=== PATIENT | male | born 1935 | race Caucasian/White ===

== ENCOUNTER 2017-01-29 08:17 | Emergency (ER) | payer OTHER ==
[2017-01-29 08:23] VITALS: BP 136/63; PULSE 58; TEMP 99.3; BMI 24.9
--- NOTE | 2017-01-29 08:34 | PDOC ---
History of Present Illness - General Chief Complaint: CVA/TIA Stated Complaint: NUMBNESS IN RIGHT HAND Time Seen by Provider: 01/29/17 08:23 History Source: Patient, Family, Old Records Exam Limitations: No Limitations - History of Present Illness Initial Comments: 01/29/17 08:37 81-year-old male with history of hypertension, high cholesterol, atrial fibrillation, coronary artery disease status post stent presents to the emergency department with 2 week history of intermittent right upper extremity and right lower extremity numbness and weakness. The patient states that he has had 4 episodes over the past 2 weeks the last episode occurring 4 days ago. Each episode lasts approximately 3-4 minutes and spontaneously resolves and the patient regains full sensation and motor strength. The patient was referred to a neurologist, Dr. Zambrano yesterday who referred him to the emergency department yesterday; however, the patient did not feel comfortable going to the ER without his family with him and so presented to the emergency department today. The neurologist requested that the patient get CT head and CT angio of the carotids. The patient is currently without complaints. Past History - Past Medical History Allergies/Adverse Reactions: Allergies Allergy/AdvReac Type Severity Reaction Status Date / Time No Known Allergies Allergy Verified 01/29/17 08:19 Home Medications: Ambulatory Orders Metoprolol Succinate 50 mg PO DAILY 03/24/12 Pantoprazole Sodium [Protonix -] 20 mg PO DAILY #0 tablet.ec 03/24/12 Simvastatin [Zocor] 20 mg PO DAILY 03/24/12 Amlodipine Besylate [Norvasc -] 5 mg PO DAILY 04/09/13 Tamsulosin HCl 0.4 mg PO DAILY 04/09/13 Rivaroxaban [Xarelto -] 20 mg PO DAILY 01/29/17 Anemia: No Asthma: No Cancer: No Cardiac Disorders: Yes (AFIB, 2STENTS, LINK) CVA: No COPD: No CHF: No Dementia: No Diabetes: No Dialysis: No GI Disorders: Yes Disorders: Yes (recent colonoscopy was negative per patient) HTN: Yes Hypercholesterolemia: Yes HIV: No Kidney Stones: No Liver Disease: No Seizures: No Thyroid Disease: No - Surgical History Abdominal Surgery: No Appendectomy: Yes Cardiac Surgery: Yes (STENT) Cholecystectomy: No Lung Surgery: No Neurologic Surgery: No Orthopedic Surgery: No - Immunization History Td Vaccination: No TDAP Vaccination: No Immunization Up to Date: Yes - Psycho/Social/Smoking Cessation Hx Anxiety: No Suicidal Ideation: No Smoking Status: No Smoking History: Never smoked Years of Tobacco Use: 0 Number of Cigarettes Smoked Daily: 0 Cigars Per Day: 0 Hx Alcohol Use: No Drug/Substance Use Hx: No Substance Use Type: None Hx Substance Use Treatment: No Review of Systems - Review of Systems Able to Perform ROS?: Yes Is the patient limited [place] proficient: No Constitutional: No: Symptoms Reported HEENTM: No: Symptoms Reported Respiratory: No: Symptoms reported Cardiac (ROS): No: Symptoms Reported ABD/GI: No: Symptoms Reported : No: Symptoms Reported Musculoskeletal: No: Symptoms Reported Integumentary: No: Symptoms Reported Neurological: Yes: See HPI *Physical Exam - Vital Signs Last Vital Signs Temp Pulse Resp BP Pulse Ox 99.3 F 58 L 18 136/63 100 01/29/17 08:19 01/29/17 08:19 01/29/17 08:19 01/29/17 08:19 01/29/17 08:19 - Physical Exam Comments: 01/29/17 08:40 GENERAL: Well developed, well nourished. Awake and alert. No acute distress. HEENT: Normocephalic, atraumatic. PERRLA, EOMI. No conjunctival pallor. Sclera are non- icteric. Moist mucous membranes. Oropharynx is clear. NECK: Supple. Full ROM. No JVD. No lymphadenopathy. There is a bruit auscultated in the left carotid region. CARDIOVASCULAR: Regular rate and rhythm. No murmurs, rubs, or gallops. Distal pulses are 2+ and symmetric. PULMONARY: No evidence of respiratory distress. Lungs clear to auscultation bilaterally. No wheezing, rales or rhonchi. ABDOMINAL: Soft. Non-tender. Non-distended. No rebound or guarding. No organomegaly. Normoactive bowel sounds. MUSCULOSKELETAL Normal range of motion at all joints. No bony deformities or tenderness. No CVA tenderness. EXTREMITIES: No cyanosis. No clubbing. No edema. No calf tenderness. SKIN: Warm and dry. Normal capillary refill. No rashes. No jaundice. NEUROLOGICAL: Alert, awake, appropriate. Cranial nerves 2-12 intact. Grossly non-focal exam. Sensory and motor exams as well as cerebellar exams are non-focal. PSYCHIATRIC: Cooperative. Good eye contact. Appropriate mood and affect. ED Treatment Course - LABORATORY CBC & Chemistry Diagram: 01/29/17 08:36 01/29/17 08:36 Medical Decision Making - Medical Decision Making 01/29/17 08:40 81-year-old male with history of hypertension, hyperlipidemia, atrial fibrillation, coronary artery disease who presents the emergency Department with complaints of intermittent right upper extremity and right lower extremity numbness and weakness 2 weeksshe is currently asymptomatic. There is a left carotid bruit heard on physical exam. Differential diagnosis includes but is not limited to: TIA, carotid stenosis, carotid dissection. Plan: 1. CT head 2. CT angiogram of the neck 3. Will discuss the case with the patient's neurologist 4. Labs 5. Observe and reevaluate 01/29/17 13:00 Addeneum: CT head was negative for stroke/ischemia. The CT neck has not been officially read as of yet. I have discussed this with Dr. Zambrano who agrees with the plan to discharge thepatient. We have provided thepatient with a CD of the scans. I will call Dr Zambrano with the results of the CT neck later. Return to the ED if Sx persist, owrsen or new Sx arise. *DC/Admit/Observation/Transfer Diagnosis at time of Disposition: Weakness - Discharge Dispostion Disposition: HOME Condition at time of disposition: Stable Admit: No - Referrals Referrals: Kuldeep Roe MD [Primary Care Provider] - - Patient Instructions Additional Instructions: Follow-up with Dr. Zambrano (Neurology). Return to the ED of your symptoms persist, worsen or new symptoms arise.
[2017-01-29 08:48] LABS: BASOPHIL 0.8 % (0-2.0); MCHC 32.6 g/dl (32.0-35.9); MEAN CELL VOLUME 82.6 fl (80-96); MEAN PLT VOLUME 8.7 fl (7.5-11.1); NEUTROPHILS 48.7 % (42.8-82.8); PLATELET COUNT 233 K/MM3 (134-434); RDW 14.3 % (11.9-15.9); WHITE BLOOD COUNT 5.9 K/mm3 (4.0-10.0)
[2017-01-29 09:14] LABS: CALCIUM 8.6 mg/dl (8.4-10.2); PHOSPHOROUS 2.7 mg/dl (2.5-4.6)
--- NOTE | 2017-01-29 13:47 | EKG ---
Test Reason : Blood Pressure : / mmHG Vent. Rate : 059 BPM Atrial Rate : 059 BPM P-R Int : 160 ms QRS Dur : 126 ms QT Int : 428 ms P-R-T Axes : 057 -16 013 degrees QTc Int : 423 ms SINUS BRADYCARDIA RIGHT BUNDLE BRANCH BLOCK CANNOT RULE OUT INFERIOR INFARCT , AGE UNDETERMINED ABNORMAL ECG NO PREVIOUS ECGS AVAILABLE Confirmed by CECE PADGETT MD ([id number]) on 01/29/2017 1:46:30 PM Referred By: YVON JACQUES Confirmed By:CECE PADGETT MD
== END 2017-01-29 13:05 | disposition home or self-care (01) ==
LOC: FER 08:17
DX: M62.81 Muscle weakness (generalized) (principal); I10 Essential (primary) hypertension; E78.00 Pure hypercholesterolemia, unspecified; Z95.5 Presence of coronary angioplasty implant and graft; I48.91 Unspecified atrial fibrillation
CPT/HCPCS: 36415; 70450-TC; 70498-TC; 80048; 83735; 84100; 85025; 93005; 99283-25

== ENCOUNTER 2017-05-16 10:04 | Observation (INO) | payer OTHER ==
--- NOTE | 2017-05-16 10:23 | RAPID ---
Physical Examination Vital Signs: Vital Signs Temperature 98.3 F 05/16/17 10:13 Pulse Rate 58 L 05/16/17 10:13 Respiratory Rate 15 05/16/17 10:13 Blood Pressure 106/66 05/16/17 10:13 O2 Sat by Pulse Oximetry (%) 98 05/16/17 10:13 Findings/Remarks: Rapid response called to outpatient phlebotomy. Briefly, this is an 81 year old male with a history of HTN, CAD, and LOOP recorder, on Xarelto, who accompanied his to have her labs drawn this morning. He felt lightheaded and fell backwards, striking his head on the floor. He did not lose consciousness, but also did not realize he was on the floor until BEHAVIORAL ASSISTANT arrived. He denies pain. He is alert and oriented x 3. BP 106 systolic. No obvious head trauma or midline cervical vertebral tenderness. Transported to ED via stretcher. Dr. Turpin to assume care.
--- NOTE | 2017-05-16 10:30 | PDOC ---
History of Present Illness - General Chief Complaint: Syncope/Near Syncope Stated Complaint: FAINTED AND STRUCK BACK OF HEAD Time Seen by Provider: 05/16/17 10:28 History Source: Patient Exam Limitations: No Limitations - History of Present Illness Initial Comments: 05/16/17 10:29 This patient is an 81 yo M with a history of HTN, HLD, Afib on Xeralto, CAD s/p PCI and stenting Pt presents to the ER as a rapid response PT was enroute to phlebotomy with his THey had not gotten in to the room, he did not see any blood He states he remembers getting dizzy and falling He had a loss of consciousness He states that he often gets dizzy when he goes up steps Today, however, he did not go up any steps He denies chest pain or pressure, he denies nausea He denies preceding headache He denies focal weakness or numbness 05/16/17 10:30 PMH: HTN, HLD, Afib, CAD PSH: Meds: please see MAR ALL: NKDA Social: No alcohol, drugs, cigarette use GENERAL/CONSTITUTIONAL: No: fever, chills, weakness, loss of appetite. HEAD, EYES, EARS, NOSE AND THROAT: No: change in vision, ear pain, discharge, sore throat, throat swelling. CARDIOVASCULAR: No: chest pain, lightheadedness, palpitations, syncope RESPIRATORY: No: cough, shortness of breath, wheezing, hemoptysis, stridor. GASTROINTESTINAL: No: nausea, vomiting, abdominal cramping, diarrhea, rectal bleeding, constipation. GENITOURINARY: No: dysuria, hematuria, frequency, urgency, flank pain. MUSCULOSKELETAL: No: back pain, neck pain, joint pain, muscle swelling or pain SKIN: No: lesions, pallor, rash or easy bruising. NEUROLOGIC: Yes: Syncope No: headache, vertigo, paresthesias, weakness ENDOCRINE: No: unexplained weight gain or loss HEMATOLOGIC/LYMPHATIC: No: anemia, easy bleeding, swelling nodes Adult PE GENERAL: The patient is in no acute distress. HEAD: Normal with no signs of trauma, no hematoma. EYES: PERRLA, EOMI, sclera anicteric, conjunctiva clear. ENT: Ears normal, nares patent, oropharynx clear without exudates. Moist mucous membranes. NECK: Normal range of motion, supple No midline tenderness to palpation LUNGS: Breath sounds equal, clear to auscultation bilaterally. HEART:Regular rate and rhythm, normal S1 and S2 without murmur, rub or gallop. ABDOMEN: Soft, nontender, normoactive bowel sounds. No guarding, no rebound. EXTREMITIES: Normal range of motion, no edema. No clubbing or cyanosis. No erythema, or tenderness. NEUROLOGICAL: Cranial nerves II through XII grossly intact. Normal speech. No focal neurological deficits. MUSCULOSKELETAL: Back non-tender to palpation, no CVA tenderness SKIN: Warm, Dry, normal turgor, no rashes or lesions noted. 05/16/17 10:36 Past History - Past Medical History Allergies/Adverse Reactions: Allergies Allergy/AdvReac Type Severity Reaction Status Date / Time No Known Allergies Allergy Verified 05/16/17 10:29 Home Medications: Ambulatory Orders Metoprolol Succinate 50 mg PO DAILY 03/24/12 Pantoprazole Sodium [Protonix -] 20 mg PO DAILY #0 tablet.ec 03/24/12 Simvastatin [Zocor] 20 mg PO DAILY 03/24/12 Amlodipine Besylate [Norvasc -] 5 mg PO DAILY 04/09/13 Tamsulosin HCl 0.4 mg PO HS 04/09/13 Rivaroxaban [Xarelto -] 20 mg PO HS 01/29/17 Docusate Sodium [Colace -] 100 mg PO HS 05/16/17 Anemia: No Asthma: No Cancer: No Cardiac Disorders: Yes (AFIB, 2STENTS, LINK) CVA: No COPD: No CHF: No Dementia: No Diabetes: No Dialysis: No GI Disorders: Yes Disorders: Yes (recent colonoscopy was negative per patient) HTN: Yes Hypercholesterolemia: Yes HIV: No Kidney Stones: No Liver Disease: No Seizures: No Thyroid Disease: No - Surgical History Abdominal Surgery: No Appendectomy: Yes Cardiac Surgery: Yes (STENT) Cholecystectomy: No Lung Surgery: No Neurologic Surgery: No Orthopedic Surgery: No - Immunization History Td Vaccination: No TDAP Vaccination: No Immunization Up to Date: Yes - Psycho/Social/Smoking Cessation Hx Anxiety: No Suicidal Ideation: No Smoking Status: No Smoking History: Never smoked Years of Tobacco Use: 0 Number of Cigarettes Smoked Daily: 0 Cigars Per Day: 0 Hx Alcohol Use: No Drug/Substance Use Hx: No Substance Use Type: None Hx Substance Use Treatment: No *Physical Exam - Vital Signs Last Vital Signs Temp Pulse Resp BP Pulse Ox 98.3 F 58 L 15 106/66 98 05/16/17 10:13 05/16/17 10:13 05/16/17 10:13 05/16/17 10:13 05/16/17 10:13 Heart Score/ECG Review #1 ECG reviewed & interpreted by me at: 10:40 05/16/17 10:40 SR, rate of 56 bpm [place] nml RBBB Q wave III, aVF (similar to prior) ED Treatment Course - LABORATORY CBC & Chemistry Diagram: 05/16/17 11:10 05/16/17 11:10 Medical Decision Making - Medical Decision Making 05/16/17 10:39 Syncopal event: Vasovagal, ACS, Seizure Will do labs Will do EKG Will do CXR Will re assess 05/16/17 12:09 Laboratory Tests 05/16/17 05/16/17 05/16/17 11:10 11:10 11:10 WBC 6.4 Hgb 13.0 Hct 39.1 Plt Count 225 Neutrophils % 57.9 Lymphocytes % 30.0 Sodium 130 L Potassium 4.4 Chloride 99 Carbon Dioxide 24 BUN 12 Creatinine 1.0 Random Glucose 118 H Creatine Kinase 284 H 05/16/17 12:36 Laboratory Tests 05/16/17 11:10 Creatine Kinase 284 H CK-MB (CK-2) Rel Index 1.0 Troponin I < 0.[address]: no ICH, no fracture or dislocation Case reviewed with Dr Pearson He agrees, pt should stay in the hospital as he has an internal loop recorder which should be interrogated Case reviewed with Dr Briseno He will place on observation Will consult cardiology Will place on tele Clinical Impression: syncope 05/17/17 16:51 *DC/Admit/Observation/Transfer Diagnosis at time of Disposition: Syncope and collapse - Discharge Dispostion Disposition: HOME Condition at time of disposition: Stable Admit: Yes - Referrals
[2017-05-16 11:54] LABS: CPK(DFH) 284 IU/L (38-174)
[2017-05-16 12:02] LABS: ALBUMIN 3.7 g/dl (3.5-5.0); ALK PHOS 91 U/L (32-92); ANION GAP 7 (8-16); BASOPHIL 1.1 % (0-2.0); BILIRUBIN,TOTAL 0.9 mg/dl (0.2-1.0); CALCIUM 8.9 mg/dl (8.4-10.2); CO2 24 mmol/L (22-28); EOSINOPHIL 1.5 % (0-4.5); GLUCOSE,RANDOM 118 mg/dl (74-106); MCH 26.8 pg (25.7-33.7); MCHC 33.2 g/dl (32.0-35.9); RDW 14.8 % (11.9-15.9); SGOT/AST 29 U/L (10-42); SGPT/ALT 25 U/L (10-40); TOT PROT 6.7 g/dl (6.4-8.3); WHITE BLOOD COUNT 6.4 K/mm3 (4.0-10.8)
[2017-05-16 12:03] LABS: MEAN CELL VOLUME 80.8 fl (80-96); MEAN PLT VOLUME 8.9 fl (7.5-11.1); NEUTROPHILS 57.9 % (42.8-82.8); PLATELET COUNT 225 K/MM3 (134-434)
[2017-05-16 12:33] LABS: TROPONIN I (DFP) < 0.03 ng/ml (0.03-0.50)
[2017-05-16 14:16] VITALS: BMI 24.0
[2017-05-16] MEDS ORDERED: ACETAMINOPHEN 325 MG TABLET (FP) PO PRN (16:28)
--- NOTE | 2017-05-16 16:37 | HP ---
Admitting History and Physical - Primary Care Physician PCP: Kuldeep Roe - Admission Chief Complaint: fall History of Present Illness: This patient is an 81 yo M with a history of HTN, HLD, Afib on Xeralto, CAD s/p PCI, hard of hearing and bph and stenting Pt presented to the ER as a rapid response PT was en route to phlebotomy with his They had not gotten in to the room, he did not see any blood He states he remembers getting dizzy and falling He had a loss of consciousness He states that he often gets dizzy when he goes up steps Today, however, he did not go up any steps He denies chest pain or pressure, he denies nausea He denies preceding headache He denies focal weakness or numbness work up -ve -- ct head -ve pt admitted for observation. pt seen/ examined/ chart reviewed. case also discussed with er physician at present comfortable c/c - mild discomfort in neck/ back of head. denies cp/ sob/ abd pain denies u/ b trouble History Source: Patient, Family Member Limitations to Obtaining History: No Limitations - Smoking History Smoking history: Never smoked Aproximately how many cigarettes per day: 0 - Alcohol/Substance Use Hx Alcohol Use: No Home Medications - Allergies Allergies/Adverse Reactions: Allergies Allergy/AdvReac Type Severity Reaction Status Date / Time No Known Allergies Allergy Verified 05/16/17 10:29 - Home Medications Home Medications: Ambulatory Orders Metoprolol Succinate 50 mg PO DAILY 03/24/12 Pantoprazole Sodium [Protonix -] 20 mg PO DAILY #0 tablet.ec 03/24/12 Simvastatin [Zocor] 20 mg PO DAILY 03/24/12 Amlodipine Besylate [Norvasc -] 5 mg PO DAILY 04/09/13 Tamsulosin HCl 0.4 mg PO HS 04/09/13 Rivaroxaban [Xarelto -] 20 mg PO HS 01/29/17 Docusate Sodium [Colace -] 100 mg PO HS 05/16/17 Review of Systems Unable to obtain ROS, reason: see [place] Physical Examination Vital Signs: Vital Signs Temperature 97.5 F L 05/16/17 14:11 Pulse Rate 58 L 05/16/17 14:11 Respiratory Rate 16 05/16/17 14:18 Blood Pressure 125/64 05/16/17 14:11 O2 Sat by Pulse Oximetry (%) 100 05/16/17 14:18 Constitutional: Yes: No Distress, Calm Eyes: Yes: Conjunctiva Clear Neck: Yes: Supple, Other (no jvd) Cardiovascular: Yes: Regular Rate and Rhythm. No: Pulse Irregular Respiratory: Yes: CTA Bilaterally Gastrointestinal: Yes: Soft Edema: No Neurological: Yes: WNL, Cran Nerves II-XII Intact, Other (perrla) Psychiatric: Yes: Alert Imaging - Results Chest X-ray: Report Reviewed Cat Scan: Report Reviewed EKG: Report Reviewed Problem List - Problems (1) Syncope and collapse Code(s): R55 - SYNCOPE AND COLLAPSE (2) Head trauma Code(s): S09.90XA - UNSPECIFIED INJURY OF HEAD, INITIAL ENCOUNTER (3) Chronic a-fib Code(s): I48.2 - CHRONIC ATRIAL FIBRILLATION (4) Hypertension Code(s): I10 - ESSENTIAL (PRIMARY) HYPERTENSION (5) BPH (benign prostatic hyperplasia) Code(s): N40.0 - BENIGN PROSTATIC HYPERPLASIA WITHOUT LOWER URINRY TRACT SYMP Assessment/Plan stable exam benign monitor on tele orthostatic check up recommended hearing check as out pt repeat head ct head in am restart xarelto in am if ct head -ve fall precautions cta neck 02/14 noted if orthostasis +ve- consider d/c bph. will follow discussed in family in detail
--- NOTE | 2017-05-16 17:07 | CON.CARD ---
Consult Consult Specialty:: Cardiology Referred by:: Dr. Bienvenido Briseno Reason for Consultation:: Syncope - History of Present Illness Chief Complaint: Syncope History of Present Illness: This patient is an 81 yo M with history of HTN, HLD, paroxysmal Afib on Xarelto with ILR, CAD s/p PCI(stent), hard of hearing and bph admitted for syncopal episode following prodromal sxs of dizziness, reports positional component, denies chest pain, dyspnea, palpitations, orthopnea, PND or LE edema. Sees Dr. Tyrone Levy at [facility] for cardiology. - History Source History Provided By: Patient, Family Member Limitations to Obtaining History: No Limitations - Past Medical History Cardio/Vascular: Yes: AFIB, HTN - Alcohol/Substance Use Hx Alcohol Use: No - Smoking History Smoking history: Never smoked Aproximately how many cigarettes per day: 0 Home Medications - Allergies Allergies/Adverse Reactions: Allergies Allergy/AdvReac Type Severity Reaction Status Date / Time No Known Allergies Allergy Verified 05/16/17 10:29 - Home Medications Home Medications: Ambulatory Orders Metoprolol Succinate 50 mg PO DAILY 03/24/12 Pantoprazole Sodium [Protonix -] 20 mg PO DAILY #0 tablet.ec 03/24/12 Simvastatin [Zocor] 20 mg PO DAILY 03/24/12 Amlodipine Besylate [Norvasc -] 5 mg PO DAILY 04/09/13 Tamsulosin HCl 0.4 mg PO HS 04/09/13 Rivaroxaban [Xarelto -] 20 mg PO HS 01/29/17 Docusate Sodium [Colace -] 100 mg PO HS 05/16/17 Review of Systems - Review of Systems Neurological: reports: Syncope Vital Signs: Vital Signs Temperature 97.5 F L 05/16/17 14:11 Pulse Rate 58 L 05/16/17 14:11 Respiratory Rate 16 05/16/17 16:27 Blood Pressure 125/64 05/16/17 14:11 O2 Sat by Pulse Oximetry (%) 100 05/16/17 16:27 Constitutional: Yes: No Distress, Calm Neck: Yes: Supple, Other (No response to carotid sinus massage) Respiratory: Yes: Regular, CTA Bilaterally Gastrointestinal: Yes: Normal Bowel Sounds, Soft Cardiovascular: Yes: Regular Rate and Rhythm JVD: No Carotid Bruit: No Heart Sounds: Yes: S1, S2 Murmur: Yes: Systolic Murmur, Grade 1 Edema: No - Other Data SR @ 59 RBBB similar to previous 01/29/2017 Prior Cardiac Procedures: PTCA with Stent Imaging - Results Chest X-ray: Report Reviewed (NAD) Cat Scan: Report Reviewed (HCT: Negative) Problem List - Problems (1) Head trauma Code(s): S09.90XA - UNSPECIFIED INJURY OF HEAD, INITIAL ENCOUNTER Qualifiers: Encounter type: initial encounter Qualified Code(s): S09.90XA - Unspecified injury of head, initial encounter (2) Hypertension Code(s): I10 - ESSENTIAL (PRIMARY) HYPERTENSION Qualifiers: Hypertension type: essential hypertension Qualified Code(s): I10 - Essential (primary) hypertension (3) Syncope and collapse Code(s): R55 - SYNCOPE AND COLLAPSE (4) Hyperlipidemia Code(s): E78.5 - HYPERLIPIDEMIA, UNSPECIFIED Qualifiers: Hyperlipidemia type: pure hypercholesterolemia Qualified Code(s): E78.00 - Pure hypercholesterolemia, unspecified; E78.0 - Pure hypercholesterolemia (5) Status post coronary artery stent placement Code(s): Z95.5 - PRESENCE OF CORONARY ANGIOPLASTY IMPLANT AND GRAFT (6) Paroxysmal atrial fibrillation Code(s): I48.0 - PAROXYSMAL ATRIAL FIBRILLATION (7) Status post placement of implantable loop recorder Code(s): Z95.818 - PRESENCE OF OTHER CARDIAC IMPLANTS AND GRAFTS Assessment/Plan 1. Suspect neurocardiogenic syncope +/- orthostasis with closed head trauma 2. PAF->SR on NOAC with ILR 3. HTN 4. Hyperlipidemia 5. BPH 6. CAD s/p PCI(stent), angina pectoris P:1. Check orthostatic vs, rim technician, interrogate ILR 2. Repeat HCT in AM and to resume Xarelto 20 qpm after then 3. Continue Toprol XL 50 qd, Lipitor 10 qhs, Norvasc 5 qd, Flomax 0.4 qhs 4. Thank you for consultative opportunity, patient to f/u with Dr. Tyrone Levy upon d/c, plan of care d/w family
[2017-05-16 19:48] LABS: CPK(DFH) 215 IU/L (38-174)
[2017-05-16 19:57] LABS: TROPONIN I (DFP) < 0.03 ng/ml (0.03-0.50)
[2017-05-16 20:20] LABS: CK MB 2.4 ng/ml (0.3-4.0)
[2017-05-16] MEDS ORDERED: ATORVASTATIN CA 10 MG TABLET (FP) PO SCH (22:00)
[2017-05-16] MEDS ORDERED: TAMSULOSIN HCL 0.4 MG CAP.ER.24H (FP) PO SCH (22:00)
[2017-05-16] MEDS ORDERED: DOCUSATE SODIUM 100 MG CAPSULE (FP) PO SCH (22:00)
[2017-05-16] MEDS ORDERED: RIVAROXABAN 20 MG TABLET PO SCH (22:00)
[2017-05-17] MEDS ORDERED: PANTOPRAZOLE 20 MG TABLET (FP) PO SCH (10:00)
[2017-05-17] MEDS ORDERED: METOPROLOL SUCCINATE 50 MG TAB.SR.24H (FP) PO SCH (10:00)
[2017-05-17] MEDS ORDERED: amLODIPine BESYLATE 5 MG TABLET (FP) PO SCH (10:00)
[2017-05-17] MEDS ORDERED: RIVAROXABAN 20 MG TABLET PO SCH (12:00)
--- NOTE | 2017-05-17 12:47 | DS ---
Physical Examination Vital Signs: Vital Signs Temperature 98.3 F 05/17/17 06:00 Pulse Rate 69 05/17/17 06:00 Respiratory Rate 19 05/17/17 06:00 Blood Pressure 118/68 05/17/17 06:00 O2 Sat by Pulse Oximetry (%) 97 05/17/17 06:00 Constitutional: Yes: No Distress, Calm Cardiovascular: Yes: Regular Rate and Rhythm Respiratory: Yes: CTA Bilaterally Gastrointestinal: Yes: Normal Bowel Sounds, Soft. No: Distention, Tenderness Edema: No Discharge Summary Reason For Visit: SYNCOPE Current Active Problems BPH (benign prostatic hyperplasia) (Acute) Chronic a-fib (Acute) Head trauma (Acute) Hyperlipidemia (Acute) Hypertension (Acute) Paroxysmal atrial fibrillation (Acute) Status post coronary artery stent placement (Acute) Status post placement of implantable loop recorder (Acute) Syncope and collapse (Acute) Hospital Course: Pt admitted for syncope Fell and hit his head -\ Admission Chief Complaint: fall History of Present Illness: This patient is an 81 yo M with a history of HTN, HLD, Afib on Xeralto, CAD s/p PCI, hard of hearing and bph and stenting Pt presented to the ER as a rapid response PT was en route to phlebotomy with his They had not gotten in to the room, he did not see any blood He states he remembers getting dizzy and falling He had a loss of consciousness He states that he often gets dizzy when he goes up steps Today, however, he did not go up any steps He denies chest pain or pressure, he denies nausea He denies preceding headache He denies focal weakness or numbness work up -ve -- ct head -ve pt admitted for observation. pt seen/ examined/ chart reviewed. case also discussed with er physician at present comfortable c/c - mild discomfort in neck/ back of head. denies cp/ sob/ abd pain denies u/ b trouble Hospital course Seen by Cardiology-- cardiac enzymes nbegatoive Tele uneventful Also had interrogation of ILR spoke with son- apparently does not eat breakfast in the morning-- he drinks two glasses of water and one cup of tea. Pt has been dizzy mostly in the mornings. CTA done previously negative repeat CT head negative or bleed pt may resume Xarelto stable for dc home and he should follow up with his canteen operator- Dr Levy in 2 weeks. Condition: Stable - Instructions Referrals: Kuldeep Roe MD [Primary Care Provider] - Disposition: HOME - Home Medications Comprehensive Discharge Medication List: Ambulatory Orders Metoprolol Succinate 50 mg PO DAILY 03/24/12 Pantoprazole Sodium [Protonix -] 20 mg PO DAILY #0 tablet.ec 03/24/12 Simvastatin [Zocor] 20 mg PO DAILY 03/24/12 Amlodipine Besylate [Norvasc -] 5 mg PO DAILY 04/09/13 Tamsulosin HCl 0.4 mg PO HS 04/09/13 Rivaroxaban [Xarelto -] 20 mg PO HS 01/29/17 Docusate Sodium [Colace -] 100 mg PO HS 05/16/17
[2017-05-17 13:14] VITALS: BP 129/64; PULSE 65; TEMP 97.4
--- NOTE | 2017-05-19 08:40 | EKG ---
Test Reason : Blood Pressure : / mmHG Vent. Rate : 056 BPM Atrial Rate : 056 BPM P-R Int : 198 ms QRS Dur : 122 ms QT Int : 398 ms P-R-T Axes : 032 -17 021 degrees QTc Int : 384 ms SINUS BRADYCARDIA WITH SINUS ARRHYTHMIA RIGHT BUNDLE BRANCH BLOCK INFERIOR INFARCT (CITED ON OR BEFORE 29-JAN-2017) ABNORMAL ECG WHEN COMPARED WITH ECG OF 29-JAN-2017 08:42, NO SIGNIFICANT CHANGE WAS FOUND Confirmed by CECE PADGETT MD ([id number]) on 05/19/2017 8:40:04 AM Referred By: KIRA Confirmed By:CECE PADGETT MD
[2017-06-01 14:20] LABS: CK MB 2.9 ng/ml (0.3-4.0)
== END 2017-05-17 14:01 | disposition home or self-care (01) ==
LOC: FER 10:04 → FM/S 13:32
PROVIDERS: ADMIT Internal Medicine; ATTEND Internal Medicine
DX: R55 Syncope and collapse (principal); S09.90XA Unspecified injury of head, initial encounter; I10 Essential (primary) hypertension; I25.10 Atherosclerotic heart disease of native coronary artery without angina pectoris; I48.0 Paroxysmal atrial fibrillation; E78.5 Hyperlipidemia, unspecified; N40.0 Benign prostatic hyperplasia without lower urinary tract symptoms; Z79.01 Long term (current) use of anticoagulants; Z95.5 Presence of coronary angioplasty implant and graft; Z95.818 Presence of other cardiac implants and grafts; W18.39XA Other fall on same level, initial encounter; Y93.89 Activity, other specified; Y92.238 Other place in hospital as the place of occurrence of the external cause
CPT/HCPCS: 36415; 70450-TC; 71010-TC; 72125-TC; 80053; 82550; 82553; 84484; 85025; 93005; 99285-25; G0378

== ENCOUNTER 2019-07-09 08:39 | Observation (INO) | payer OTHER, MEDICARE ==
--- NOTE | 2019-07-09 08:47 | PDOC ---
History of Present Illness - General Chief Complaint: Syncope/Near Syncope Stated Complaint: SYNCOPE Time Seen by Provider: 07/09/19 08:42 History Source: Patient, EMS, Family Exam Limitations: No Limitations - History of Present Illness Initial Comments: 07/09/19 10:06 81 yo M with a history of HTN, HLD, Afib on Xarelto, CAD s/p PCI, dizzy spells/ syncope, slow Afib requiring PPM, hard of hearing and BPH presenting with fall after dizzy spells this morning with associated syncope. He was performing his usual morning routine and walked up the stairs to the bathroom; after making bowel movement, he was getting up to get dressed when he felt very dizzy and going black. He fell to the ground, attempted to get up but fell back again onto his buttock. His son heard two thumps up stairs and found patient on the ground, alert and oriented, but was unclear as to what occurred between the toilet to the floor. Patient experienced Prodromal symptoms including nausea and diaphoresis, headache, but no weakness/paresthesias, chest pain or dyspnea. He currently is complaining of lower and upper back pain. He also endorses nonproductive Cough x 1 week, no f/c. Allergies: None Past Medical History: as documented in EMR/HPI Social history: Lives with family. No tobacco, ETOH or drug use. 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 Past History - Past Medical History Allergies/Adverse Reactions: Allergies Allergy/AdvReac Type Severity Reaction Status Date / Time No Known Allergies Allergy Verified 07/09/19 09:26 Home Medications: Ambulatory Orders Metoprolol Succinate 100 mg PO DAILY 03/24/12 Pantoprazole Sodium [Protonix -] 20 mg PO DAILY #0 tablet.ec 03/24/12 Simvastatin [Zocor] 20 mg PO DAILY 03/24/12 Amlodipine Besylate [Norvasc -] 10 mg PO DAILY 04/09/13 Tamsulosin HCl 0.4 mg PO HS 04/09/13 Rivaroxaban [Xarelto -] 20 mg PO HS 01/29/17 Docusate Sodium [Colace -] 100 mg PO HS 05/16/17 Multivit-Min/FA/Lycopen/Lutein [Centrum Silver Men Tablet] 1 each PO DAILY 07/09 [place]-3 Fatty Acids [[place]-3] 1,000 mg PO DAILY 07/09/19 Anemia: No Asthma: No Cancer: No Cardiac Disorders: Yes (AFIB, 2STENTS, LINK) CVA: No COPD: No CHF: No Dementia: No Diabetes: No Dialysis: No GI Disorders: Yes Disorders: Yes (recent colonoscopy was negative per patient) HTN: Yes Hypercholesterolemia: Yes Kidney Stones: No Liver Disease: No Seizures: No Thyroid Disease: No - Surgical History Abdominal Surgery: No Appendectomy: Yes Cardiac Surgery: Yes (STENT) Cholecystectomy: No Lung Surgery: No Neurologic Surgery: No Orthopedic Surgery: No - Immunization History Td Vaccination: No TDAP Vaccination: No Immunization Up to Date: Yes - Suicide/Smoking/Psychosocial Hx Smoking Status: No Smoking History: Never smoked Years of Tobacco Use: 0 Number of Cigarettes Smoked Daily: 0 Cigars Per Day: 0 Hx Alcohol Use: No Drug/Substance Use Hx: No Substance Use Type: None Hx Substance Use Treatment: No Review of Systems - Review of Systems Able to Perform ROS?: Yes Comments:: 07/09/19 10:06 Review of systems Constitutional: no fevers or chills. HEENT: +headache or dizziness. No congestion. No visual/hearing disturbances. CVS: no cp or palpitations. +Syncope. Resp: no sob. +cough Gastrointestinal: no abdominal pain, vomiting or diarrhea. +nausea Genitourinary: no urinary sx, hematuria. no incontinence. MUSCULOSKELETAL: No joint pain and swelling. no neck pain. +back pain. SKIN: no redness or skin changes, no discharge, no rash. No wounds. Hematologic: no easy bruising/bleeding. NEUROLOGIC: +headache, dizziness, LOC. No seizure. No altered mental status. No focal weakness, numbness or tingling. Psych: no anxiety or depression Allergic/Immunologic: no allergies All other systems reviewed and negative, or as documented in HPI. *Physical Exam - Physical Exam Comments: 07/09/19 10:08 Physical exam: General: Well appearing, awake and alert, NAD. HEENT: NCAT, PERRL, EOMI, clear conjunctiva, anicteric, moist mucus membranes, clear oropharynx, no oral lesions.. Neck: neck supple, FROM, no midline tenderness Chest: left chest wall Resp: CTAB, normal and even respirations, no respiratory distress CVS: +irregularly irregular, soft heart sounds. no murmurs, 2+ peripheral pulses throughout, no peripheral edema Abdomen: soft, NTND, no peritoneal signs. Back: normal inspection and ROM; +sacral and tailbone tenderness midline. Pelvis: stable, FROM at prox hip and knee joints. MSK: no edema, THORPE x4, ROM intact. No clubbing or cyanosis. normal bulk and tone. Neuro: alert, no focal neuro deficits. 5/5 ui designer strength. 5/5 prox and distal strength. speech clear. Psych: calm and cooperative Skin: warm and well perfused, cap refill <2 sec, normal color 07/09/19 10:31 Heart Score/ECG Review #1 ECG reviewed & interpreted by me at: 09:00 General ECG Interpretation: Normal Rate, Normal Intervals Compared to previous ECG there are: No significant change 07/09/19 09:06 EKG Afib with RBBB, few PVCs,no interval abnormalities, wide QRS, ST and T wave segments and morphology normal. Nonspecific T wave abnormalities - similar to prior 07/09/19 09:06 ED Treatment Course - LABORATORY CBC & Chemistry Diagram: 07/09/19 09:30 07/09/19 09:30 - RADIOLOGY Radiology Studies Ordered: Category Date Time Status HEAD CT WITHOUT CONTRAST [CT] Stat CT Scan 07/09/19 08:46 Ordered Medical Decision Making - Medical Decision Making 07/09/19 09:04 See HPI for details. Prior notes reviewed, including admissions, discharges and consultations. DDX vasovagal, orthostatics, cardiogenic vs vasovagal vs neurogenic syncope, ACS , arrhythmia, dehydration, anemia, electrolyte/metabolic derangements. back strain, compression fx, tailbone fx. 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 Vital signs reviewed, wnl. Vital Signs Temp Pulse Resp BP Pulse Ox 97.6 F 77 20 124/65 98 07/09/19 08:40 07/09/19 08:40 07/09/19 08:40 07/09/19 08:40 07/09/19 08:40 laboratory results and imaging reviewed, basic labs and lytes wnl, notable for_ . CXR_no acute chest pathology; PPM seen in left chest; interstitial markings prominent, but no focal infiltrate. Cardiac panel_neg trop x1, reassuring. needs serials/EKG and tele monitoring EKG Afib with RBBB, few PVCsno interval abnormalities, wide QRS, ST and T wave segments and morphology normal. Nonspecific T wave abnormalities - similar to prior CT head neg for acute pathology/bleed or injuries. ED course -interventions: analgesia, reassess admit for syncope workup, atypical and high risk features, need to be eval for cardiogenic vs neurogenic etiology given history. 07/09/19 10:30 - called out to Dr Roe, left message to give clinical update and intention to admit also paged out to Dr Briseno for admission, agree with plan IP cards cs Dr Wu same as previous. pt and family made aware of impression and plan 07/09/19 10:31 07/09/19 10:35 *DC/Admit/Observation/Transfer Diagnosis at time of Disposition: Syncope Qualifiers: Syncope type: unspecified Qualified Code(s): R55 - Syncope and collapse - Discharge Dispostion Condition at time of disposition: Guarded Decision to Admit order: Yes Decision to Admit order Date/Time: 07/09/19 10:30 Decision to Admit Order Category Date Time Status Decision to Admit to Hospital Routine Admission 07/09/19 10:16 Active - Referrals - Patient Instructions - Post Discharge Activity
[2019-07-09] MEDS ORDERED: LIDOCAINE 5% TOPICAL PATCH TP ONE (09:30)
[2019-07-09] MEDS ORDERED: ACETAMINOPHEN 325 MG TABLET (FP) PO ONE (09:30)
[2019-07-09] MEDS ORDERED: ACETAMINOPHEN 325 MG TABLET (FP) ONE (09:37)
[2019-07-09] MEDS ORDERED: LIDOCAINE 5% TOPICAL PATCH ONE (09:37)
[2019-07-09 09:52] LABS: BASO % 0.2 % (0-2.0); EOS % 1.2 % (0-4.5); HEMATOCRIT 40.4 % (35.4-49); HEMOGLOBIN 12.8 GM/dl (11.7-16.9); LYMPH % 15.7 % (8-40); MCH 24.8 pg (25.7-33.7); MCHC 31.6 g/dl (32.0-35.9); MEAN CELL VOLUME 78.3 fl (80-96); MEAN PLT VOLUME 8.5 fl (7.5-11.1); MONO % 7.1 % (3.8-10.2); NEUT % 75.8 % (42.8-82.8); PLATELET COUNT 316 K/MM3 (134-434); RBC 5.16 M/mm3 (4.00-5.60); RDW 15.8 % (11.9-15.9); WHITE BLOOD COUNT 8.9 K/mm3 (4.0-10.8)
[2019-07-09 10:08] LABS: INR 1.64 (0.82-1.09); PROTHROMBIN TIME (PATIENT) 18.2 SEC (10.2-13.0)
[2019-07-09 10:09] LABS: ALBUMIN 3.8 g/dl (3.4-5.0); BILIRUBIN,TOTAL 0.7 mg/dl (0.2-1); CALCIUM 8.6 mg/dl (8.5-10); CREATININE 1.1 mg/dl (0.55-1.3); MAGNESIUM 2.2 mg/dL (1.8-2.4); POTASSIUM 4.1 mmol/L (3.5-5.1); TOT PROT 7.5 g/dl (6.4-8.2)
--- NOTE | 2019-07-09 11:10 | CON.CARD ---
Consult Consult Specialty:: Cardiology Referred by:: Bienvenido Briseno MD Reason for Consultation:: Near Syncope - History of Present Illness Chief Complaint: Near syncope History of Present Illness: 81 yo M with a history of HTN, HLD, Afib on Xarelto, CAD s/p PCI, dizzy spells/ syncope, slow Afib s/p PPM, hard of hearing and BPH presented with fall after dizzy spell this morning with associated syncope. He was performing his usual morning routine and walked up the stairs to the bathroom; after having bowel movement, he was getting up to get dressed when he felt very dizzy, nauseous, diaphoretic and going black. He fell to the ground, attempted to get up but fell back again onto his buttock. His son heard two thumps up stairs and found patient on the ground, alert and oriented, but was unclear as to what occurred between the toilet to the floor. Patient experienced prodromal symptoms including nausea and diaphoresis, headache, but no weakness/paresthesias, chest pain, palpitations or dyspnea. Allergies: None Past Medical History: as documented in EMR/HPI Social history: Lives with family. No tobacco, ETOH or drug use. 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: Dr Levy [facility] - History Source History Provided By: Patient Limitations to Obtaining History: No Limitations - Past Medical History Cardio/Vascular: Yes: AFIB, HTN - Alcohol/Substance Use Hx Alcohol Use: No - Smoking History Smoking history: Never smoked Have you smoked in the past 12 months: No Aproximately how many cigarettes per day: 0 Home Medications - Allergies Allergies/Adverse Reactions: Allergies Allergy/AdvReac Type Severity Reaction Status Date / Time No Known Allergies Allergy Verified 07/09/19 09:26 - Home Medications Home Medications: Ambulatory Orders Metoprolol Succinate 100 mg PO DAILY 03/24/12 Pantoprazole Sodium [Protonix -] 20 mg PO DAILY #0 tablet.ec 03/24/12 Simvastatin [Zocor] 20 mg PO DAILY 03/24/12 Amlodipine Besylate [Norvasc -] 10 mg PO DAILY 04/09/13 Tamsulosin HCl 0.4 mg PO HS 04/09/13 Rivaroxaban [Xarelto -] 20 mg PO HS 01/29/17 Docusate Sodium [Colace -] 100 mg PO HS 05/16/17 Multivit-Min/FA/Lycopen/Lutein [Centrum Silver Men Tablet] 1 each PO DAILY 07/09 [place]-3 Fatty Acids [[place]-3] 1,000 mg PO DAILY 07/09/19 Review of Systems - Review of Systems Neurological: reports: Dizziness, Syncope Vital Signs: Vital Signs Temperature 97.6 F 07/09/19 08:40 Pulse Rate 77 07/09/19 10:04 Respiratory Rate 17 07/09/19 10:04 Blood Pressure 112/71 07/09/19 10:04 O2 Sat by Pulse Oximetry (%) 100 07/09/19 10:04 Constitutional: Yes: No Distress, Calm Neck: Yes: Supple Respiratory: Yes: Regular, CTA Bilaterally Gastrointestinal: Yes: Normal Bowel Sounds, Soft Cardiovascular: Yes: Pulse Irregular JVD: No Carotid Bruit: No Heart Sounds: Yes: S1, S2 Edema: No - Other Data Labs, Other Data: CBC, BMP 07/09/19 09:30 07/09/19 09:30 INR, PTT INR 1.64 (0.82-1.09) H D 07/09/19 09:30 Troponin, BNP 07/09/19 09:30 Troponin I < 0.03 Troponin, BNP 07/09/19 09:30 Troponin I < 0.03 Afib RBBB with occ paced @ 74 Tele: Afib rate-controlled Imaging - Results Chest X-ray: Report Reviewed (CXR no acute chest pathology; PPM seen in left chest; interstitial markings prominent, but no focal infiltrate.) Cat Scan: Report Reviewed (HCT: negative for acute events) Ultrasound: Report Reviewed (Carotid US: 60-79% bilateral ICA) Problem List - Problems (1) Chronic anticoagulation Code(s): Z79.01 - PENITENTIARY (CURRENT) USE OF ANTICOAGULANTS (2) Pacemaker Code(s): Z95.0 - PRESENCE OF CARDIAC PACEMAKER (3) Syncope Code(s): R55 - SYNCOPE AND COLLAPSE Qualifiers: Syncope type: vasovagal syncope Qualified Code(s): R55 - Syncope and collapse (4) Chronic a-fib Code(s): I48.2 - CHRONIC ATRIAL FIBRILLATION (5) Hyperlipidemia Code(s): E78.5 - HYPERLIPIDEMIA, UNSPECIFIED Qualifiers: Hyperlipidemia type: other hyperlipidemia Qualified Code(s): E78.49 - Other hyperlipidemia; E78.4 - Other hyperlipidemia (6) Hypertension Code(s): I10 - ESSENTIAL (PRIMARY) HYPERTENSION Qualifiers: Hypertension type: essential hypertension Qualified Code(s): I10 - Essential (primary) hypertension (7) Status post coronary artery stent placement Code(s): Z95.5 - PRESENCE OF CORONARY ANGIOPLASTY IMPLANT AND GRAFT Assessment/Plan 1. Neurocardiogenic syncope with typical prodromal sxs 2. Persistent afib on Xarelto 3. Sick sinus syndrome s/p PPM with most recent check several months ago -> normal function 4. Hypertension 5. Hyperlipidemia P:1. Advised on abortive maneuvers once prodromal symptoms experienced, check orthostatic VS 2. Continue Toprol XL 100 qd, Zocor 20 qhs, Norvasc 10 qd, Xarelto 20 qhs and Lovaza 3. F/u with Dr. Tyrone Levy at [facility] upon d/c in AM 4. Thank you for consultative opportunity
[2019-07-09] MEDS ORDERED: ACETAMINOPHEN 325 MG TABLET (FP) PO PRN (13:43)
--- NOTE | 2019-07-09 13:43 | EKG ---
Test Reason : Blood Pressure : / mmHG Vent. Rate : 074 BPM Atrial Rate : 117 BPM P-R Int : 000 ms QRS Dur : 120 ms QT Int : 382 ms P-R-T Axes : 000 -23 -17 degrees QTc Int : 424 ms ATRIAL FIBRILLATION WITH FREQUENT ventricular-paced complexes RIGHT BUNDLE BRANCH BLOCK INFERIOR INFARCT , AGE UNDETERMINED ABNORMAL ECG Confirmed by CUCO NAYAK MD ([id number]) on 07/09/2019 1:43:06 PM Referred By: Confirmed By:CUCO NAYAK MD
--- NOTE | 2019-07-09 13:49 | HP ---
Admitting History and Physical - Primary Care Physician PCP: Kuldeep Roe - Admission History of Present Illness: pt seen/ examined chart reviewed discussed with er physician Er records reviewed and I concur In summary 83 yo M with a history of HTN, HLD, Afib on Xarelto, CAD s/p PCI, dizzy spells/ syncope, slow Afib -- s/p- PPM, hard of hearing and BPH presenting with fall after dizzy spells this morning with associated syncope. He was performing his usual morning routine and walked up the stairs to the bathroom; after making bowel movement, he was getting up to get dressed when he felt very dizzy and going black. He fell to the ground, attempted to get up but fell back again onto his buttock. His son heard two thumps up stairs and found patient on the ground, alert and oriented, but was unclear as to what occurred between the toilet to the floor. Patient experienced Prodromal symptoms including nausea and diaphoresis, headache, but no weakness/paresthesias, chest pain or dyspnea. He currently is complaining of lower and upper back pain. He also endorses nonproductive Cough x 1 week, no f/c. Allergies: None Past Medical History: as documented in EMR/HPI Social history: Lives with family. No tobacco, ETOH or drug use. 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, [facility] Ct head -ve ekg- afib pt seen/ examined awake/ comfortable denies cp/sob/palpitations/headache / dizziness History Source: Patient, Family Member - Past Medical History Cardiovascular: Yes: AFIB, HTN - Smoking History Smoking history: Never smoked Have you smoked in the past 12 months: No Aproximately how many cigarettes per day: 0 - Alcohol/Substance Use Hx Alcohol Use: No Home Medications - Allergies Allergies/Adverse Reactions: Allergies Allergy/AdvReac Type Severity Reaction Status Date / Time No Known Allergies Allergy Verified 07/09/19 09:26 - Home Medications Home Medications: Ambulatory Orders Metoprolol Succinate 100 mg PO DAILY 03/24/12 Pantoprazole Sodium [Protonix -] 20 mg PO DAILY #0 tablet.ec 03/24/12 Simvastatin [Zocor] 20 mg PO DAILY 03/24/12 Amlodipine Besylate [Norvasc -] 10 mg PO DAILY 04/09/13 Tamsulosin HCl 0.4 mg PO HS 04/09/13 Rivaroxaban [Xarelto -] 20 mg PO HS 01/29/17 Docusate Sodium [Colace -] 100 mg PO HS 05/16/17 Multivit-Min/FA/Lycopen/Lutein [Centrum Silver Men Tablet] 1 each PO DAILY 07/09 [place]-3 Fatty Acids [[place]-3] 1,000 mg PO DAILY 07/09/19 Review of Systems Findings/Remarks: see poarch Physical Examination Vital Signs: Vital Signs Temperature 97.6 F 07/09/19 08:40 Pulse Rate 77 07/09/19 10:04 Respiratory Rate 17 07/09/19 13:40 Blood Pressure 112/71 07/09/19 10:04 O2 Sat by Pulse Oximetry (%) 100 07/09/19 13:40 Constitutional: Yes: No Distress, Calm Eyes: Yes: Conjunctiva Clear, PERRL Neck: Yes: Supple Cardiovascular: Yes: Pulse Irregular Respiratory: Yes: CTA Bilaterally Gastrointestinal: Yes: Soft Edema: No Neurological: Yes: Alert, Other (non focal) Psychiatric: Yes: Alert Labs: CBC, BMP 07/09/19 09:30 07/09/19 09:30 Imaging - Results Chest X-ray: Report Reviewed X-ray: Report Reviewed Cat Scan: Report Reviewed EKG: Report Reviewed Problem List - Problems (1) Pacemaker Code(s): Z95.0 - PRESENCE OF CARDIAC PACEMAKER (2) Syncope Code(s): R55 - SYNCOPE AND COLLAPSE Qualifiers: Syncope type: unspecified Qualified Code(s): R55 - Syncope and collapse (3) Chronic a-fib Code(s): I48.2 - CHRONIC ATRIAL FIBRILLATION (4) Head trauma Code(s): S09.90XA - UNSPECIFIED INJURY OF HEAD, INITIAL ENCOUNTER Qualifiers: Encounter type: initial encounter Qualified Code(s): S09.90XA - Unspecified injury of head, initial encounter (5) Hypertension Code(s): I10 - ESSENTIAL (PRIMARY) HYPERTENSION Qualifiers: Hypertension type: essential hypertension Qualified Code(s): I10 - Essential (primary) hypertension (6) Status post coronary artery stent placement Code(s): Z95.5 - PRESENCE OF CORONARY ANGIOPLASTY IMPLANT AND GRAFT Assessment/Plan Discussed Likely vasovagal fall precaution monitor cardiology consult pt reports ppm checked last month and ok fall precautions check orthostasis Hold FLomax and Eliquis Repeat CT head in am If stable - Anticipate d/c in am Discussed with pts family also who at bedside Will follow
[2019-07-09 14:07] VITALS: BMI 25.2
[2019-07-09] MEDS ORDERED: DOCUSATE SODIUM 100 MG CAPSULE (FP) PO SCH (22:00)
[2019-07-09] MEDS ORDERED: LIDOCAINE PATCH REMOVAL MC SCH (22:00)
[2019-07-09] MEDS ORDERED: ATORVASTATIN CA 10 MG TABLET (FP) PO SCH (22:00)
[2019-07-10 08:20] LABS: BASO % 0.3 % (0-2.0); EOS % 0.6 % (0-4.5); HEMATOCRIT 38.5 % (35.4-49); HEMOGLOBIN 12.2 GM/dl (11.7-16.9); LYMPH % 21.6 % (8-40); MCH 24.9 pg (25.7-33.7); MCHC 31.6 g/dl (32.0-35.9); MEAN CELL VOLUME 78.8 fl (80-96); MEAN PLT VOLUME 8.5 fl (7.5-11.1); MONO % 8.9 % (3.8-10.2); NEUT % 68.6 % (42.8-82.8); PLATELET COUNT 300 K/MM3 (134-434); RBC 4.89 M/mm3 (4.00-5.60); WHITE BLOOD COUNT 7.6 K/mm3 (4.0-10.8)
[2019-07-10 08:29] LABS: ALBUMIN 3.5 g/dl (3.4-5.0); BILIRUBIN,TOTAL 0.8 mg/dl (0.2-1); CALCIUM 8.7 mg/dl (8.5-10); POTASSIUM 4.1 mmol/L (3.5-5.1); TOT PROT 6.9 g/dl (6.4-8.2)
[2019-07-10] MEDS ORDERED: amLODIPine BESYLATE 10 MG TABLET (FP) PO SCH (10:00)
[2019-07-10] MEDS ORDERED: MULTIVITAMINS THER W-MINERALS COMBO TABLET (FP) PO SCH (10:00)
[2019-07-10] MEDS ORDERED: PATIENT'S OWN MEDICATION (NON-FORMULARY) (Omega-3 Fatty Acids [Omega-3] 1,000 MG) PO SCH (10:00)
[2019-07-10] MEDS ORDERED: PATIENT'S OWN MEDICATION (NON-FORMULARY) (Multivit-Min/Fa/Lycopen/Lutein [Centrum Silver M PO SCH (10:00)
[2019-07-10] MEDS ORDERED: PANTOPRAZOLE 20 MG TABLET (FP) PO SCH (10:00)
[2019-07-10] MEDS ORDERED: RIVAROXABAN 20 MG TABLET PO SCH (10:40)
--- NOTE | 2019-07-10 10:44 | DS ---
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 Constitutional: Yes: No Distress, Calm Eyes: Yes: Conjunctiva Clear Neck: Yes: Supple Cardiovascular: Yes: Pulse Irregular Respiratory: Yes: CTA Bilaterally Gastrointestinal: Yes: Soft Edema: No Neurological: Yes: Alert Psychiatric: Yes: Alert Labs: CBC, BMP 07/10/19 07:50 07/10/19 07:50 Discharge Summary Reason For Visit: SYNCOPE Current Active Problems Chronic anticoagulation (Acute) Pacemaker (Acute) Syncope (Acute) Hospital Course: admitted for syncope Likely vaso vagal u/s carotid-- upto 79 perccent stenosis cta recommended.-- ordered discussed overall stable d/c home later today if cta -ve and cardiology cleared-- need to follow 2 to rapid afib in am-- ct head -ve x 2 restart xarelto Condition: Guarded - Instructions - Home Medications Comprehensive Discharge Medication List: Ambulatory Orders Metoprolol Succinate 100 mg PO DAILY 03/24/12 Pantoprazole Sodium [Protonix -] 20 mg PO DAILY #0 tablet.ec 03/24/12 Simvastatin [Zocor] 20 mg PO DAILY 03/24/12 Amlodipine Besylate [Norvasc -] 10 mg PO DAILY 04/09/13 Tamsulosin HCl 0.4 mg PO HS 04/09/13 Rivaroxaban [Xarelto -] 20 mg PO HS 01/29/17 Docusate Sodium [Colace -] 100 mg PO HS 05/16/17 Multivit-Min/FA/Lycopen/Lutein [Centrum Silver Men Tablet] 1 each PO DAILY 07/09 [place]-3 Fatty Acids [[place]-3] 1,000 mg PO DAILY 07/09/19 Acetaminophen [Tylenol .Regular Strength -] 650 mg PO Q4H PRN tablet 07/10/19
--- NOTE | 2019-07-10 13:04 | PN ---
Progress Note, Physician History of Present Illness: Denies further recurrence of near or true syncope, Rapid afib earlier this AM, given Toprol XL earlier and currently rate-controlled. - Current Medication List Current Medications: Active Medications Acetaminophen (Tylenol -) 650 mg PO Q4H PRN PRN Reason: PAIN LEVEL 1-5 Amlodipine Besylate (Norvasc -) 10 mg PO DAILY COUNT INCLUDES THE [facility] Last Admin: 07/10/19 10:00 Dose: 10 mg Atorvastatin Calcium (Lipitor -) 10 mg PO HS COUNT INCLUDES THE [facility] Last Admin: 07/09/19 22:04 Dose: 10 mg Docusate Sodium (Colace -) 100 mg PO HS COUNT INCLUDES THE [facility] Last Admin: 07/09/19 22:04 Dose: 100 mg Metoprolol Succinate (Toprol Xl -) 100 mg PO DAILY COUNT INCLUDES THE [facility] Last Admin: 07/10/19 07:34 Dose: 100 mg Miscellaneous (Lidoderm Patch Removal) 1 each MC DAILY@2200 COUNT INCLUDES THE [facility] Last Admin: 07/09/19 22:04 Dose: 1 each Multivitamins/Minerals (Theragran-M) 1 each PO DAILY COUNT INCLUDES THE [facility] Last Admin: 07/10/19 10:00 Dose: 1 each Non-Formulary Medication ([place]-3 Fatty Acids [[place]-3]) 1,000 mg PO DAILY COUNT INCLUDES THE [facility] Pantoprazole Sodium (Protonix -) 20 mg PO DAILY COUNT INCLUDES THE [facility] Last Admin: 07/10/19 10:01 Dose: 20 mg Rivaroxaban (Xarelto) 20 mg PO HS COUNT INCLUDES THE [facility] Last Admin: 07/10/19 11:54 Dose: 20 mg - Objective Vital Signs: Vital Signs Temperature 98 F 07/10/19 08:20 Pulse Rate 86 07/10/19 08:24 Respiratory Rate 18 07/10/19 08:20 Blood Pressure 91/58 L 07/10/19 08:24 O2 Sat by Pulse Oximetry (%) 95 07/10/19 06:00 Constitutional: Yes: No Distress, Calm, Thin Neck: Yes: Supple Cardiovascular: Yes: Pulse Irregular Respiratory: Yes: Regular, CTA Bilaterally Gastrointestinal: Yes: Normal Bowel Sounds, Soft Edema: No Labs: CBC, BMP 07/10/19 07:50 07/10/19 07:50 INR, PTT INR 1.64 (0.82-1.09) H D 07/09/19 09:30 - ....Imaging Cat Scan: Report Reviewed (HCT Negative) EKG: Report Reviewed (Tele: Rapid afib) Problem List - Problems (1) Chronic anticoagulation Code(s): 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 (2) Pacemaker Code(s): Z95.0 - PRESENCE OF CARDIAC PACEMAKER (3) Syncope Code(s): R55 - SYNCOPE AND COLLAPSE Qualifiers: Syncope type: vasovagal syncope Qualified Code(s): R55 - Syncope and collapse (4) Chronic a-fib Code(s): I48.2 - CHRONIC ATRIAL FIBRILLATION (5) Hyperlipidemia Code(s): E78.5 - HYPERLIPIDEMIA, UNSPECIFIED Qualifiers: Hyperlipidemia type: other hyperlipidemia Qualified Code(s): E78.49 - Other hyperlipidemia; E78.4 - Other hyperlipidemia (6) Hypertension Code(s): I10 - ESSENTIAL (PRIMARY) HYPERTENSION Qualifiers: Hypertension type: essential hypertension Qualified Code(s): I10 - Essential (primary) hypertension (7) Status post coronary artery stent placement Code(s): Z95.5 - PRESENCE OF CORONARY ANGIOPLASTY IMPLANT AND GRAFT Assessment/Plan 1. Neurocardiogenic syncope with typical prodromal sxs 2. Persistent afib with RVR on Xarelto 3. Sick sinus syndrome s/p PPM with most recent check several months ago -> normal function 4. Hypertension 5. Hyperlipidemia 6. Bilateral carotid stenosis 60-79% P:1. Advised on abortive maneuvers once prodromal symptoms experienced 2. Continue Toprol XL 100 qd, Zocor 20 qhs, Norvasc 10 qd, Xarelto 20 qhs and Lovaza 3. F/u with Dr. Tyrone Levy at [facility] upon d/c 4. F/u neck CTA to elucidate carotid disease
[2019-07-10 14:02] VITALS: BP 113/58; PULSE 73; TEMP 97.7
== END 2019-07-10 15:45 | disposition home or self-care (01) ==
LOC: FER 08:39 → FM/S 10:16
PROVIDERS: ADMIT Internal Medicine; ATTEND Internal Medicine
DX: R55 Syncope and collapse (principal); I10 Essential (primary) hypertension; E78.5 Hyperlipidemia, unspecified; I48.2 Chronic atrial fibrillation; I25.10 Atherosclerotic heart disease of native coronary artery without angina pectoris; I45.10 Unspecified right bundle-branch block; H91.90 Unspecified hearing loss, unspecified ear; N40.0 Benign prostatic hyperplasia without lower urinary tract symptoms; S09.90XA Unspecified injury of head, initial encounter; W18.39XA Other fall on same level, initial encounter; Y93.89 Activity, other specified; Y92.002 Bathroom of unspecified non-institutional (private) residence as the place of occurrence of the external cause; Z95.0 Presence of cardiac pacemaker; Z79.01 Long term (current) use of anticoagulants; Z95.5 Presence of coronary angioplasty implant and graft
CPT/HCPCS: 36415; 70450-TC; 70498-TC; 71045-TC-FY; 72100-TC-FY; 80053; 83735; 84443; 84484; 85025; 85610; 93005; 93880-TC; 99285-25; G0378